=== PATIENT | male | born 1980 | race Caucasian/White ===

== ENCOUNTER 2020-08-17 16:07 | Outpatient (CLI) | payer OTHER ==
[2020-08-18 06:51] LABS: SARS-CoV-2 PCR by NAA Not Detected (NotDetected)
== END 2020-08-17 16:08 | disposition home or self-care (01) ==
LOC: CSHLAB 16:07
PROVIDERS: ATTEND Surgery
DX: Z20.822 Contact with and (suspected) exposure to COVID-19 (principal); Z80.0 Family history of malignant neoplasm of digestive organs
CPT/HCPCS: 87635; U0003; U0005

== ENCOUNTER 2020-08-20 07:59 | Day surgery (SDC) | payer OTHER ==
[2020-08-19 10:35] VITALS: BMI 28.8
[2020-08-20] MEDS ORDERED: Lidocaine 1% MPF 2 ML VIAL ONE (08:06)
[2020-08-20] MEDS ORDERED: PROPOFOL 40 ML ONE (10:09)
[2020-08-20] MEDS ORDERED: Lidocaine 1% PF 5 ML VIAL ONE (10:09)
[2020-08-20] MEDS ORDERED: Midazolam HCl 2 mg/2 ml Vial ONE (10:09)
== END 2020-08-20 11:20 | disposition home or self-care (01) ==
LOC: CSHSDC 07:59
PROVIDERS: ATTEND Surgery
PROC: 0DJD8ZZ Inspection of Lower Intestinal Tract, Via Natural or Artificial Opening Endoscopic (ICD-10-PCS; principal; 2020-08-20)
DX: Z12.11 Encounter for screening for malignant neoplasm of colon (principal); Z80.0 Family history of malignant neoplasm of digestive organs
CPT/HCPCS: J2250; J2704

== ENCOUNTER 2022-12-19 12:24 | Outpatient (CLI) | payer BC | END 2022-12-19 12:25 | disposition home or self-care (01) | LOC: CSHRAD 12:24 | PROVIDERS: ATTEND Family Medicine Sports Medicine | DX: M25.551 Pain in right hip (principal); M41.86 Other forms of scoliosis, lumbar region; M47.816 Spondylosis without myelopathy or radiculopathy, lumbar region | CPT/HCPCS: 72100 ==